=== PATIENT | female | born 1995 | race Native Hawaiian/Other Pacific Islander ===

== ENCOUNTER 2019-05-05 12:44 | Outpatient (CLI) | payer OTHER | END 2019-05-05 19:16 | disposition home or self-care (01) | LOC: LABW 12:44 | DX: Z00.00 Encounter for general adult medical examination without abnormal findings (principal) | CPT/HCPCS: 36415; 86480; 86706; 86787 ==

== ENCOUNTER 2019-06-02 12:05 | Outpatient (CLI) | payer OTHER | END 2019-06-02 23:45 | disposition home or self-care (01) | LOC: LABW 12:05 | DX: Z13.9 Encounter for screening, unspecified (principal) | CPT/HCPCS: 36415; 87340 ==